=== PATIENT | female | born 1995 | race Hispanic/Latino ===

== ENCOUNTER 2019-03-17 18:08 | Emergency (ER) | payer BC ==
[2019-03-17] MEDS ORDERED: IBUPROFEN 200 MG TAB PO ONE (18:47)
[2019-03-17] MEDS ORDERED: IBUPROFEN 400 MG TAB ONE (18:47)
--- NOTE | 2019-03-17 19:33 | RAD REPORT ---
EXAM DESCRIPTION: Jose Single View03/17/2019 6:43 pm CLINICAL HISTORY: cough COMPARISON: none FINDINGS: The lungs appear clear of acute infiltrate. The heart is normal size IMPRESSION: No acute abnormalities displayed
--- NOTE | 2019-03-17 19:44 | EDPHYS ---
Physician Documentation [facility] Name: Swetha Posey Age: 24 yrs Sex: Female : 1995 Arrival Date: 03/17/2019 Time: 18:10 Bed 14 Private MD: ED Physician Jeff Fam HPI: 03/17 19:03 This 24 yrs old Female presents to ER via Ambulatory with complaints of Fever, kb Congestion. 19:03 The patient or guardian reports cough, that is intermittent, described as moderate, kb with no sputum, flu symptoms, low-grade fever, myalgias. Onset: The symptoms/episode began/occurred 3 day(s) ago. Severity of symptoms: At their worst the symptoms were moderate, in the emergency department the symptoms are unchanged. Modifying factors: The symptoms are alleviated by nothing, the symptoms are aggravated by nothing. Associated signs and symptoms: Pertinent positives: fever, rhinorrhea, sore throat. The patient has not experienced similar symptoms in the past. The patient has not recently seen a physician. 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 - Social history:: Smoking status: . - Ebola Screening: : Patient denies travel to an Ebola-affected area in the 21 days before illness onset. ROS: 19:01 Neck: Negative for injury, pain, and swelling, Cardiovascular: Negative for chest pain, kb palpitations, and edema, Abdomen/GI: Negative for abdominal pain, nausea, vomiting, diarrhea, and constipation, Back: Negative for injury and pain, : Negative for injury, bleeding, discharge, and swelling, MS/Extremity: Negative for injury and deformity, Skin: Negative for injury, rash, and discoloration. 19:01 Constitutional: Positive for body aches, chills, fatigue, fever, malaise. 19:01 ENT: Positive for sore throat. 19:01 Respiratory: Positive for cough, Negative for dyspnea on exertion, hemoptysis, orthopnea, pleurisy, shortness of breath, sputum production, wheezing. 19:01 Neuro: Positive for headache. Exam: 19:02 Constitutional: This is a well developed, well nourished patient who is awake, alert, kb and in no acute distress. Head/Face: Normocephalic, atraumatic. ENT: Nares patent. No nasal discharge, no septal abnormalities noted. Tympanic membranes are normal and external auditory canals are clear. Oropharynx with no redness, swelling, or masses, exudates, or evidence of obstruction, uvula midline. Mucous membranes moist. Neck: Trachea midline, no thyromegaly or masses palpated, and no cervical lymphadenopathy. Supple, full range of motion without nuchal rigidity, or vertebral point tenderness. No Meningismus. Chest/axilla: Normal chest wall appearance and motion. Nontender with no deformity. No lesions are appreciated. Cardiovascular: Regular rate and rhythm with a normal S1 and S2. No gallops, murmurs, or rubs. Normal PMI, no JVD. No pulse deficits. Respiratory: Lungs have equal breath sounds bilaterally, clear to auscultation and percussion. No rales, rhonchi or wheezes noted. No increased work of breathing, no retractions or nasal flaring. Abdomen/GI: Soft, non-tender, with normal bowel sounds. No distension or tympany. No guarding or rebound. No evidence of tenderness throughout. Skin: Warm, dry with normal turgor. Normal color with no rashes, no lesions, and no evidence of cellulitis. MS/ Extremity: Pulses equal, no cyanosis. Neurovascular intact. Full, normal range of motion. Neuro: Awake and alert, GCS 15, oriented to person, place, time, and situation. Cranial nerves II-XII grossly intact. Motor strength 5/5 in all extremities. Sensory grossly intact. Cerebellar exam normal. Normal gait. Vital Signs: 18:23 BP 129 / 79; Pulse 111; Resp 19; Temp 102.2(TE); Pulse Ox 100% on R/A; Weight 63.5 kg tw2 (R); Height 5 ft. 3 in. (160.02 cm); Pain 0/10; 19:15 BP 124 / 77; Pulse 108; Resp 18; Temp 102.2(O); Pulse Ox 100% on R/A; jb4 19:49 Temp 103.0(O); ds4 18:23 Body Mass Index 24.80 (63.50 kg, 160.02 cm) tw2 MDM: 18:25 Patient medically screened. kb 19:00 Data reviewed: vital signs, nurses notes. Data interpreted: Pulse oximetry: on room air kb is 100 %. Interpretation: normal. 19:43 Counseling: I had a detailed discussion with the patient and/or guardian regarding: the kb historical points, exam findings, and any diagnostic results supporting the discharge/admit diagnosis, lab results, radiology results, the need for outpatient follow up, a family practitioner, to return to the emergency department if symptoms worsen or persist or if there are any questions or concerns that arise at home. 03/17 18:25 Order name: Flu; Complete Time: 19:42 kb 03/17 18:30 Order name: Strep; Complete Time: 19:42 kb 03/17 18:30 Order name: Chest Single View XRAY; Complete Time: 19:43 kb 03/17 19:42 Order name: Throat Culture EDMS Administered Medications: 18:48 Drug: Ibuprofen 600 mg Route: PO; ca1 19:41 Follow up: Response: No adverse reaction; Temperature is unchanged jb4 20:06 Drug: Tylenol 1000 mg Route: PO; jb4 20:06 Follow up: Response: No adverse reaction; Medication administered at discharge. jb4 Disposition: 03/18 07:07 Co-signature as Attending Physician, Jeff Fam MD I agree with the assessment and crista plan of care. Disposition: 03/17/19 19:43 Discharged to Home. Impression: Influenza due to certain identified influenza viruses. - Condition is Stable. - Discharge Instructions: Influenza, Adult, [id number]. - Medication Reconciliation Form, Thank You Letter, Antibiotic Education, Prescription Opioid Use, Work release form form. - Follow up: Emergency Department; When: As needed; Reason: Worsening of condition. Follow up: Private Physician; When: 2 - 3 days; Reason: Recheck today's complaints, Continuance of care, Re-evaluation by your physician. Signatures: Dispatcher [employer] EDMS Louisa Diaz, Jeff Crane MD MD cha Wise, Tara RN RN tw2 Luke Logan RN RN jb4 Adilene Mahan RN RN ca1 Corrections: (The following items were deleted from the chart) 03/17 20:14 19:43 03/17/2019 19:43 Discharged to Home. Impression: Influenza due to certain jb4 identified influenza viruses. Condition is Stable. Forms are Medication Reconciliation Form, Thank You Letter, Antibiotic Education, Prescription Opioid Use. Follow up: Emergency Department; When: As needed; Reason: Worsening of condition. Follow up: Private Physician; When: 2 - 3 days; Reason: Recheck today's complaints, Continuance of care, Re-evaluation by your physician. kb
--- NOTE | 2019-03-17 19:44 | ER ---
Nurse's Notes [facility] Name: Swetha Posey Age: 24 yrs Sex: Female : 1995 Arrival Date: 03/17/2019 Time: 18:10 Bed 14 Private MD: Diagnosis: Influenza due to certain identified influenza viruses Presentation: 03/17 18:21 Presenting complaint: Patient states: i have been feeling bad for 3 days, fever and tw2 congestion for 3 days, i went to some [place] in [place] and i got sick since then. Transition of care: patient was not received from another setting of care. Onset of symptoms was March 17, 2019. Risk Assessment: Do you want to hurt yourself or someone else? Patient reports no desire to harm self or others. Initial Sepsis Screen: Does the patient meet any 2 criteria? Temp <36.0*C (96.8*F)) or > 38.3*C (100.9*F). HR > 90 bpm. Yes Does the patient have a suspected source of infection? If YES to both, name of provider notified: Jeff Fam MD. Care prior to arrival: None. 18:21 Method Of Arrival: Ambulatory tw2 18:23 Acuity: ELLIE 3 tw2 Triage Assessment: 18:22 General: Appears in no apparent distress. Behavior is calm, cooperative, appropriate tw2 for age. Pain: Complains of pain in right ear and left ear. 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 - Social history:: Smoking status: . - Ebola Screening: : Patient denies travel to an Ebola-affected area in the 21 days before illness onset. Screenin:32 Abuse screen: Denies threats or abuse. Denies injuries from another. Nutritional ca1 screening: No deficits noted. Tuberculosis screening: No symptoms or risk factors identified. Fall Risk None identified. Assessment: 18:32 General: Appears in no apparent distress. comfortable, Behavior is calm, cooperative, ca1 appropriate for age. Pain: Complains of pain in left ear and right ear Pain currently is 7 out of 10 on a pain scale. Pain began 2-3 days ago. Neuro: Level of Consciousness is awake, alert, obeys commands, Oriented to person, place, time, situation, Appropriate for age. Cardiovascular: Heart tones S1 S2 present Capillary refill < 3 seconds Patient's skin is warm and dry. Respiratory: Reports cough that is since 3 days ago Airway is patent Respiratory effort is even, unlabored, Respiratory pattern is regular, symmetrical, Breath sounds are clear bilaterally. GI: Abdomen is flat, non-distended, Bowel sounds present X 4 quads. Abd is soft and non tender X 4 quads. Reports nausea. : No deficits noted. No signs and/or symptoms were reported regarding the genitourinary system. EENT: Reports nasal congestion. Derm: Skin is intact, is healthy with good turgor, Skin is pink, warm \T\ dry. Musculoskeletal: Circulation, motion, and sensation intact. Capillary refill < 3 seconds, Range of motion: intact in all extremities. 19:15 Reassessment: Patient appears in no apparent distress at this time. Patient and/or jb4 family updated on plan of care and expected duration. Pain level reassessed. Patient is alert, oriented x 3, equal unlabored respirations, skin warm/dry/pink. 20:10 Reassessment: Patient appears in no apparent distress at this time. Patient and/or jb4 family updated on plan of care and expected duration. Pain level reassessed. Patient is alert, oriented x 3, equal unlabored respirations, skin warm/dry/pink. PT verbalize understanding of d/c and follow up instructions. Given tylenol for fever, pt did not want to stay for further monitoring. ambulated out of ED with friend with steady gait. Vital Signs: 18:23 BP 129 / 79; Pulse 111; Resp 19; Temp 102.2(TE); Pulse Ox 100% on R/A; Weight 63.5 kg tw2 (R); Height 5 ft. 3 in. (160.02 cm); Pain 0/10; 19:15 BP 124 / 77; Pulse 108; Resp 18; Temp 102.2(O); Pulse Ox 100% on R/A; jb4 19:49 Temp 103.0(O); ds4 18:23 Body Mass Index 24.80 (63.50 kg, 160.02 cm) tw2 ED Course: 18:10 Patient arrived in ED. ag5 18:15 Louisa Diaz FNP-C [facility]. kb 18:15 Jeff Fam MD is Attending Physician. kb 18:22 Triage completed. tw2 18:22 Arm band placed on. tw2 18:32 Adilene Mahan, RN is Primary Nurse. ca1 18:32 Patient has correct armband on for positive identification. Placed in gown. Bed in low ca1 position. Call light in reach. Side rails up X 1. Pulse ox on. NIBP on. 18:40 Chest Single View XRAY In Process Unspecified. EDMS 19:20 Luke Logan, RN is Primary Nurse. jb4 20:10 No provider procedures requiring assistance completed. Patient did not have IV access jb4 during this emergency room visit. Administered Medications: 18:48 Drug: Ibuprofen 600 mg Route: PO; ca1 19:41 Follow up: Response: No adverse reaction; Temperature is unchanged jb4 20:06 Drug: Tylenol 1000 mg Route: PO; jb4 20:06 Follow up: Response: No adverse reaction; Medication administered at discharge. jb4 Outcome: 19:43 Discharge ordered by MD. kb 20:10 Discharged to home ambulatory, with friend. jb4 20:10 Condition: stable 20:10 Discharge instructions given to patient, friend, Instructed on discharge instructions, follow up and referral plans. medication usage, Demonstrated understanding of instructions, follow-up care, medications. 20:14 Patient left the ED. jb4 Signatures: Dispatcher [employer] EDRI Louisa Diaz FNP-C FNP-Alan Veloz ds4 Aurea Lauren RN RN tw2 Luke Logan, EDDIE MORGAN jb4 Adilene Mahan RN RN ca1 [facility] ag5 Corrections: (The following items were deleted from the chart) 18:23 18:21 Acuity: ELLIE 4 tw2 tw2
[2019-03-17] MEDS ORDERED: ACETAMINOPHEN 500 MG TAB ONE (20:03)
[2019-03-17 20:24] VITALS: O2SAT 100
[2019-03-17 20:25] VITALS: BP 124/77
[2019-03-17 20:26] VITALS: TEMP 103
== END 2019-03-17 20:14 | disposition home or self-care (01) ==
LOC: ER 18:08
DX: J10.1 Influenza due to other identified influenza virus with other respiratory manifestations (principal)
CPT/HCPCS: 71045; 87070; 87081; 87804; 99283

== ENCOUNTER 2020-09-22 10:46 | Emergency (ER) | payer BC ==
--- OUTSIDE RECORDS SUMMARY | 2020-09-22 10:49 | XMS REPORT | Continuity of Care Document ---
:1995 Author Organization [facility] Address [address] [place] [address] Care Team Providers Name Role Phone Asked, No Pcp Primary Care Physician Unavailable Juan Teresa MD Attending Clinician Payers Payer Name Policy Type Policy Effective Date Expiration Date Sour ce Number BCBSBCBS CHOICE [id number] 2019 [place] PPO/[employer] 00:00:00 [employer] [id number] 2019-Prese ntPPO Problems This patient has no known problems. Allergies, Adverse Reactions, Alerts This patient has no known allergies or adverse reactions. Social History Social Habit Start Date Stop Date Quantity Comments Source Sex Assigned At [birth year] [place] [facility] 00:00:00 00:00:00 Medications This patient has no known medications. Immunizations Ordered Immunization Filled Immunization Date Status Commen ts Source Name Name PFIZER COVID-19 MRNA 2020-03-24 Completed [place] VACCINATION 00:00:00 [facility] PFIZER COVID-19 MRNA 2020-03-03 Completed [place] VACCINATION 00:00:00 [facility] Procedures This patient has no known procedures. Plan of Care Planned Activity Planned Date Details Comments Source Future Scheduled 2020-10-10 INFLUENZA VACCINE [place] [facility] Test 00:00:00 [code = INFLUENZA VACCINE] Future Scheduled 2014 Screening for [facility]ist Test 00:00:00 malignant neoplasm of cervix (procedure) [code = 403224874] Future Scheduled 2011 Hepatitis C [place] [facility] Test 00:00:00 screening (procedure) [code = 439802113] Encounters Start End Encounter Admission Attending Care Care Encounter Source Date/Time Date/Time Type Type Clinicians Facility Department ID 2020-03-24 2020-03-24 [facility] [id number] [place] 00:00:00 00:00:00 [facility] [address] 2020-03-03 2020-03-03 [facility] [id number] [place] 00:00:00 00:00:[address] [facility] [address] Results This patient has no known results.
--- NOTE | 2020-09-22 12:04 | RAD REPORT ---
EXAM DESCRIPTION: RAD - Chest Pa And Lat (2 Views) - 09/22/2020 11:52 am CLINICAL HISTORY: CHEST PAIN COMPARISON: Portable March 2019 TECHNIQUE: Frontal and lateral views of the chest were obtained. FINDINGS: The lungs are clear. Heart size is normal and central vasculature is within normal limit s. No pleural effusion or pneumothorax seen. No acute bony finding noted. No aortic abnormality. IMPRESSION: No acute cardiopulmonary process. No significant change from comparison study.
[2020-09-22 12:15] LABS: Absolute Lymphocytes (CBC) 2.7 K/uL (0.7-4.9); Basophils % 0.5 % (0-1.3); Hematocrit 38.7 % (36.0-45.0); Lymphocytes % 40.1 % (15.3-44.8); MPV 8.1 fL (7.6-11.3); RBC Red Blood Cell Count 4.42 M/uL (3.86-4.86)
[2020-09-22 12:40] LABS: BUN Blood Urea Nitrogen 8 mg/dL (7-18); Bicarbonate 25 mmol/L (21-32); Glucose Level 85 mg/dL (74-106); Potassium 3.8 mmol/L (3.5-5.1); Sodium Level 141 mmol/L (136-145); Troponin (Emerg Dept Use Only) < 0.02 ng/mL (0.0-0.045)
--- NOTE | 2020-09-22 14:01 | ER ---
Nurse's Notes [facility] Name: Swetha Posey Age: 25 yrs Sex: Female : 1995 Arrival Date: 09/22/2020 Time: 10:48 Bed 17 Private MD: Diagnosis: Chest pain on breathing-chest wall pain Presentation: 09/22 11:13 Chief complaint: Patient states: Got landed on in the pool 2 Saturdays ago, reports jl7 midsternal chest pain that radiates to the back, feels like stabbing. Coronavirus screen: Client denies travel out of the [place] in the last 14 days. At this time, the client does not indicate any symptoms associated with coronavirus-19. Ebola Screen: No symptoms or risks identified at this time. Initial Sepsis Screen: Does the patient meet any 2 criteria? No. Patient's initial sepsis screen is negative. Does the patient have a suspected source of infection? No. Patient's initial sepsis screen is negative. Risk Assessment: Do you want to hurt yourself or someone else? Patient reports no desire to harm self or others. Onset of symptoms was September 11, 2020. 11:13 Method Of Arrival: Ambulatory 7 11:13 Acuity: ELLIE 3 jl7 Triage Assessment: 11:16 General: Appears in no apparent distress. uncomfortable, Behavior is calm, cooperative, jl7 appropriate for age. Pain: Complains of pain in chest Pain currently is 7 out of 10 on a pain scale. 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 - Social history:: Smoking status: Patient denies any tobacco usage or history of. Screenin:34 Abuse screen: Denies threats or abuse. Denies injuries from another. Nutritional kg screening: No deficits noted. Tuberculosis screening: No symptoms or risk factors identified. Fall Risk None identified. No fall in past 12 months (0 pts). No secondary diagnosis (0 pts). No IV (0 pts). Ambulatory Aid- None/Bed Rest/Nurse Assist (0 pts). Gait- Normal/Bed Rest/Wheelchair (0 pts) Mental Status- Oriented to own ability (0 pts). Total Cintron Fall Scale indicates No Risk (0-24 pts). Assessment: 11:31 General: Appears in no apparent distress. Behavior is calm, cooperative, appropriate kg for age, quiet. Pain: Complains of pain in chest Pain does not radiate. Pain currently is 7 out of 10 on a pain scale. at worst was 8 out of 10 on a pain scale. level that patient reports is acceptable is 3 out of 10 on a pain scale. Quality of pain is described as aching, pressure, Pain began two weeks ago Is continuous. Neuro: No deficits noted. Cardiovascular: Reports chest pain, Heart tones S1 S2 Capillary refill < 3 seconds Patient's skin is warm and dry. Pulses are 4+ in right radial artery and left radial artery Chest pain is described as Pain is 7 out of 10 on a pain scale. Respiratory: No deficits noted. Breath sounds are clear bilaterally. GI: No deficits noted. : No deficits noted. EENT: Reports Pt stated, "I lost my voice last Sunday".. Derm: No deficits noted. Musculoskeletal: Reports pain in chest. Vital Signs: 11:13 BP 123 / 78; Pulse 72; Resp 17; Temp 98.1; Pulse Ox 95% ; Weight 68.04 kg; Pain 7/10; jl7 11:30 BP 116 / 76; Pulse 69; Resp 16; Pulse Ox 95% on R/A; kg 12:00 BP 113 / 75; Pulse 68; Resp 18; Pulse Ox 95% on R/A; kg 12:15 BP 107 / 70; Pulse 69; Resp 16; Pulse Ox 96% on R/A; kg 12:30 BP 112 / 73; Pulse 66; Resp 16 S; Pulse Ox 98% on R/A; kg 13:00 BP 105 / 75; Pulse 67; Resp 16; Pulse Ox 96% ; kg 13:30 BP 110 / 69; Pulse 63; Resp 18 S; Pulse Ox 96% on R/A; kg 14:00 BP 119 / 72; Pulse 71; Resp 20; Pulse Ox 96% ; kg ED Course: 10:48 Patient arrived in ED. am2 11:15 Triage completed. jl7 11:16 Arm band placed on right wrist. jl7 11:17 Louisa Diaz FNP-C [facility]. kb 11:17 Deo Montano MD is Attending Physician. kb 11:21 Minna Raymundo, RN is Primary Nurse. kg 11:34 Patient has correct armband on for positive identification. Placed in gown. Bed in low kg position. Call light in reach. Side rails up X2. 11:49 Chest Pa And Lat (2 Views) XRAY In Process Unspecified. EDMS 12:00 Inserted saline lock: 20 gauge in right antecubital area, using aseptic technique. kg 14:30 No provider procedures requiring assistance completed. IV discontinued, intact, kg bleeding controlled, No redness/swelling at site. Pressure dressing applied. Administered Medications: No medications were administered Outcome: 14:01 Discharge ordered by . kb 14:30 Discharged to home ambulatory. kg 14:30 Condition: good 14:30 Condition: good 14:30 Discharge instructions given to patient, Instructed on discharge instructions, follow up and referral plans. Demonstrated understanding of instructions, follow-up care. 14:31 Patient left the ED. kg Signatures: Dispatcher [employer] EDKY Louisa Diaz FNP-C FNP-Regina Gandhi RN RN jl7 Kerri Raymundo am2 Minna Raymundo, RN RN kg Corrections: (The following items were deleted from the chart) 11:16 11:15 Allergies: No Known Allergies; [facility] 11:16 11:15 PSHx: None; [facility]
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
[2020-09-22 14:39] VITALS: TEMP 98.1
[2020-09-22 14:49] VITALS: O2SAT 96
[2020-09-22 14:52] VITALS: BP 119/72
--- NOTE | 2020-09-23 07:30 | EKG ---
Test Date: 2020-09-22 Test Time: 12:34:40 Portable Irrigation Operator: KEYANA MEASUREMENT RESULTS: Intervals: Rate: 65 ID: [id number] QRSD: 76 QT: 382 QTc: 397 [place]: P: 67 ID: [id number] QRS: 64 T: 54 INTERPRETIVE STATEMENTS: Normal sinus rhythm Possible Left atrial enlargement Borderline ECG No previous ECG available for comparison Electronically Signed On 09-23-20 07:29:13 CDT by Mike Spear
== END 2020-09-22 14:31 | disposition home or self-care (01) ==
LOC: ER 10:46
DX: R07.1 Chest pain on breathing (principal); Z88.0 Allergy status to penicillin; Z88.3 Allergy status to other anti-infective agents
CPT/HCPCS: 36415; 71046; 80048; 84484; 85025; 85379; 87070; 87081; 93005; 99283